=== PATIENT | female | born 1955 | race Caucasian/White ===

== ENCOUNTER 2021-04-07 06:34 | Emergency (ER) | payer MEDICARE, OTHER | END 2021-04-07 07:17 | disposition home or self-care (01) | LOC: ERS 06:34 | DX: J32.0 Chronic maxillary sinusitis (principal); B96.89 Other specified bacterial agents as the cause of diseases classified elsewhere; I10 Essential (primary) hypertension; E78.5 Hyperlipidemia, unspecified | CPT/HCPCS: 99283 ==